=== PATIENT | female | born 1990 | race Caucasian/White ===

== ENCOUNTER 2019-06-08 19:35 | Emergency (ER) | payer SELFPAY ==
[~2019-06-08] VITALS: Ht 160 cm; Wt 72.6 kg
[2019-06-08 19:45] VITALS: BP 109/65
--- NOTE | 2019-06-08 19:49 | NUR ---
pt to wait in er lobby. vss. [id number]. no obvious deformity
--- NOTE | 2019-06-08 19:51 | NUR ---
per ermd, do not order xrays
--- NOTE | 2019-06-08 20:09 | NUR ---
PT TO BED 11 WITH STEADY GAIT
--- NOTE | 2019-06-08 20:15 | NUR ---
PT CAME TO ER C/O RIGHT WRIST PAIN X 1 WEEK. PT STATED SHE FELL X 1 WEEK AGO. DENIES ANY OTHER TRAUMA JUST THE RIGHT WRIST. PAIN LEVEL 10/10, ACHING WITH MOVEMENT. RIGHT WRIST HAS SLIGHT SWELLING WITHOUT REDNESS OR BRUISING NOTED. PT IS CURRENTLY 36 WEEKS . NKA. NO MED HX. SAFETY MEASURES IN PLACE.
--- NOTE | 2019-06-08 20:51 | NUR ---
Patient discharged with v/s stable. Written and verbal after care instructions given and explained. Patient alert, oriented and verbalized understanding of instructions. Ambulatory with steady gait. All questions addressed prior to discharge. ID band removed. Patient advised to follow up with PMD. Rx of TYLENOL EXTRA STRENGTH was given. Patient educated on indication of medication including possible reaction and side effects. Opportunity to ask questions provided and answered.
[2019-06-08 20:52] VITALS: BP 109/65
== END 2019-06-08 20:52 | disposition home or self-care (01) ==
LOC: MED 19:35
DX: O26.893 Other specified pregnancy related conditions, third trimester (principal); S52.521A Torus fracture of lower end of right radius, initial encounter for closed fracture; S52.614A Nondisplaced fracture of right ulna styloid process, initial encounter for closed fracture; W01.0XXA Fall on same level from slipping, tripping and stumbling without subsequent striking against object, initial encounter; Y93.89 Activity, other specified; Y92.89 Other specified places as the place of occurrence of the external cause; Y99.8 Other external cause status
CPT/HCPCS: 73100; 99283

== ENCOUNTER 2019-06-13 22:08 | Emergency (ER) | payer SELFPAY ==
[~2019-06-13] VITALS: Ht 162.6 cm; Wt 74.4 kg
[2019-06-13 22:18] VITALS: BP 124/75
--- NOTE | 2019-06-13 22:31 | NUR ---
PT CAME TO ER FOR FEVER AND CHILLS X 1 HOUR. PER PT SHE TOOK TYLENOL 500MG AT 1999. PT HAD FEVER AND CHILLS ON 06/11/19 BUT WENT AWAY. CURRENT ORAL TEMPERATURE 98.7. PT IS 37 WEEKS . DENIES COUGH OR RUNNY NOSE. DENIES N/V/D. PT IS RECEIVING CARE AND VITAMINS. NKA. NO MED HX. SAFETY MEASURES IN PLACE. WAITING FOR ERMD TO EVALUATE PT
--- NOTE | 2019-06-13 22:38 | NUR ---
ERMD AT BEDSIDE
[2019-06-13 23:11] LABS: BASOPHILS % (AUTO) 0.3 % (0.0-2.0); HEMATOCRIT 31.1 % (36-48); HEMOGLOBIN 10.3 g/dL (12.0-16.0); LYMPHOCYTES # (AUTO) 0.4 K/uL (2.5-16.5); MEAN CORPUSCULAR HEMOGLOBIN 28 pg (27-31); MEAN CORPUSCULAR HGB CONC 33 g/dL (33-37); MEAN CORPUSCULAR VOLUME 85.2 fL (80-94); MONOCYTES # (AUTO) 0.3 K/uL (0.8-1.0); MONOCYTES % (AUTO) 4.2 % (1.7-9.3); NEUTROPHILS % (AUTO) 89.1 % (42.2-75.2); PLATELET COUNT (AUTO) 179 K/uL (140-450); RED BLOOD CELL COUNT(AUTO) 3.65 MIL/uL (4.20-5.40); RED CELL DISTRIBUTION WIDTH 14.9 % (11.6-13.7); WHITE BLOOD COUNT (AUTO) 6.8 K/uL (4.8-10.8)
[2019-06-13 23:39] LABS: ANION GAP 19.1 (8-16); CARBON DIOXIDE 19.9 mmol/L (21-32)
[2019-06-13 23:40] LABS: CREATININE 0.9 mg/dL (0.6-1.3)
[2019-06-13 23:45] LABS: LYMPHOCYTES % (AUTO) 6.4 % (20.5-51.1)
[2019-06-13] MEDS ORDERED: POTASSIUM CHLORIDE 10 MEQ TABER PO ONE (23:45)
[2019-06-13 23:52] LABS: TOTAL BILIRUBIN 0.9 mg/dL (0.0-1.0)
[2019-06-13 23:53] LABS: ALBUMIN 2.2 g/dL (3.4-5.0)
[2019-06-14 00:04] LABS: APPEARANCE,URINE SL CLOUDY (CLEAR); BILIRUBIN,URINE NEGATIVE (NEGATIVE); BLOOD, URINE NEGATIVE (NEGATIVE); COLOR,URINE YELLOW (YELLOW); LEUKOCYTE ESTERASE ,URINE 1+ (NEGATIVE); NITRITE, URINE NEGATIVE (NEGATIVE); UGLUCOSE NEGATIVE (NEGATIVE)
[2019-06-14 00:33] LABS: RBC,URINE 0-5 /HPF (0-5)
[2019-06-14] MEDS ORDERED: NITROFURANTOIN 100 MG CAP PO ONE (00:35)
--- NOTE | 2019-06-14 00:57 | NUR ---
Patient discharged with v/s stable. Written and verbal after care instructions given and explained. Pt encouraged to increase potassium in diet and drink enough fluids until urine is clear. Patient alert, oriented and verbalized understanding of instructions. Ambulatory with steady gait. All questions addressed prior to discharge. ID band removed. Patient advised to follow up with PMD. Rx of MACROBID was given. Patient educated on indication of medication including possible reaction and side effects. Opportunity to ask questions provided and answered.
[2019-06-14 00:58] VITALS: BP 109/64
== END 2019-06-14 00:57 | disposition home or self-care (01) ==
LOC: MED 22:08
DX: O23.43 Unspecified infection of urinary tract in pregnancy, third trimester (principal); O99.119 Other diseases of the blood and blood-forming organs and certain disorders involving the immune mechanism complicating pregnancy, unspecified trimester; E87.6 Hypokalemia; Z3A.38 38 weeks gestation of pregnancy
CPT/HCPCS: 36415; 80053; 81001; 85025; 87086; 87804; 99283